=== PATIENT | male | born 1995 | race Caucasian/White ===

== ENCOUNTER 2024-10-19 13:47 | Emergency (ER) | payer SELFPAY ==
[2024-10-19] MEDS: Diphtheria,Pertussis(Acell),Tetanus Vaccine 0.5 ML Syringe IM ONE (14:09)
[2024-10-19] MEDS: Lidocaine 1% 10 ML MDV ONE (14:11)
[2024-10-19] MEDS: Lidocaine 1% 10 ML MDV INJECT ONE (14:11)
[2024-10-19] MEDS: Lidocaine 1% with EPINEPHrine 1:100,000 10 ML MDV INJECT ONE (14:14)
== END 2024-10-19 14:35 | disposition home or self-care (01) ==
LOC: JD.ED 13:47
DX: S01.01XA Laceration without foreign body of scalp, initial encounter (principal); W00.0XXA Fall on same level due to ice and snow, initial encounter; Y99.0 Civilian activity done for income or pay; Z23 Encounter for immunization
CPT/HCPCS: 12001; 90471; 90715; 99282-25; J3490